=== PATIENT | female | born 1950 | race Caucasian/White ===

== ENCOUNTER → 2019-09-28 11:13 | Outpatient (BNVA) | payer MEDICARE, BC, SELFPAY | PROVIDERS: PCP Internal Medicine; Referring Provider Internal Medicine; Visit Provider Specialist | DX: G25.0 Essential tremor (principal); Z87.891 Personal history of nicotine dependence | CPT/HCPCS: 99204 ==

== ENCOUNTER → 2019-11-28 10:56 | Outpatient (BNVA) | payer MEDICARE, BC, SELFPAY | PROVIDERS: PCP Internal Medicine; Visit Provider Specialist | DX: G25.0 Essential tremor (principal) | CPT/HCPCS: 99213 ==

== ENCOUNTER → 2020-11-18 13:11 | Outpatient (BNVA) | payer MEDICARE, OTHER, SELFPAY | PROVIDERS: PCP Internal Medicine; Visit Provider Specialist | DX: G54.0 Brachial plexus disorders; G24.8 Other dystonia; Z87.891 Personal history of nicotine dependence | CPT/HCPCS: 99214 ==

== ENCOUNTER → 2020-12-26 10:08 | Outpatient (BNVA) | payer MEDICARE, OTHER, SELFPAY | PROVIDERS: PCP Internal Medicine; Visit Provider Specialist | DX: G24.3 Spasmodic torticollis (principal); G96.9 Disorder of central nervous system, unspecified | CPT/HCPCS: 64616; J0585 ==

== ENCOUNTER → 2021-03-27 09:37 | Outpatient (BNVA) | payer MEDICARE, OTHER, SELFPAY | PROVIDERS: PCP Internal Medicine; Visit Provider Specialist | DX: G24.8 Other dystonia (principal); G24.3 Spasmodic torticollis; G96.9 Disorder of central nervous system, unspecified; Z87.891 Personal history of nicotine dependence | CPT/HCPCS: 64642; J0585 ==

== ENCOUNTER → 2021-06-19 09:02 | Outpatient (BNVA) | payer MEDICARE, OTHER, SELFPAY | PROVIDERS: PCP Internal Medicine; Visit Provider Specialist | DX: G24.8 Other dystonia (principal); G54.0 Brachial plexus disorders; G96.9 Disorder of central nervous system, unspecified; Z87.891 Personal history of nicotine dependence | CPT/HCPCS: 64642; 99213 ==